=== PATIENT | male | born 1975 | race Caucasian/White ===

== ENCOUNTER 2018-11-14 22:03 | Emergency (ER) | payer OTHER ==
[2018-11-14 23:05] LABS: Appearance,Urine Clear (Clear); Bilirubin,Urine Negative (Negative); Blood,Urine Negative (Negative); Color,Urine Light Yellow; Glucose,Urine (UA) Negative (Negative); Ketones,Urine Negative (Negative); Leukocyte Esterase,Urine Negative (Negative); Nitrite,Urine Negative (Negative); PH, Urine 7.5 (5.0-8.0); Protein,Urine Negative (Negative); Specific Gravity,Urine 1.012 (1.001-1.035); Urobilinogen,Urine <2.0 mg/dL (<2.0)
[2018-11-14 23:06] LABS: Basophils # (A) 0.1 k/uL (0-0.2); Basophils % (A) 1 %; Eosinophils # (A) 0.4 k/uL (0-0.7); Eosinophils % (A) 4 %; HCT 40.5 % (39.0-53.0); HGB 13.5 gm/dL (13.0-17.5); Lymphocytes # (A) 3.2 k/uL (1.0-4.8); Lymphocytes % (A) 29 %; MCH 32.8 pg (25.0-35.0); MCHC 33.3 g/dL (31.0-37.0); MCV 98.6 fL (80.0-100.0); Mean Platelet Volume 7.6; Monocytes # (A) 0.7 k/uL (0-1.0); Monocytes % (A) 6 %; Neutrophils # (A) 6.5 k/uL (1.3-7.7); Neutrophils % (A) 59 %; Platelet Count 281 k/uL (150-450); RBC 4.11 m/uL (4.30-5.90); RDW 12.1 % (11.5-15.5); WBC 10.9 k/uL (3.8-10.6)
[2018-11-14 23:14] LABS: ALT 32 U/L (21-72); AST 33 U/L (17-59); Albumin 3.8 g/dL (3.5-5.0); Alkaline Phosphatase 65 U/L (38-126); Amylase 73 U/L (30-110); Anion Gap 7 mmol/L; Blood Urea Nitrogen 14 mg/dL (9-20); Calcium 9.1 mg/dL (8.4-10.2); Carbon Dioxide 29 mmol/L (22-30); Chloride 104 mmol/L (98-107); Glucose 100 mg/dL (74-99); Lipase 132 U/L (23-300); Potassium 4.2 mmol/L (3.5-5.1); Sodium 140 mmol/L (137-145); Total Bilirubin 0.2 mg/dL (0.2-1.3); Total Protein 6.9 g/dL (6.3-8.2)
--- NOTE | 2018-11-14 23:21 | XR ---
EXAMINATION TYPE: XR KUB DATE OF EXAM: 11/14/2018 COMPARISON: NONE HISTORY: Flank pain TECHNIQUE: 2 views FINDINGS: 2 views upright were obtained and show no sign of intestinal obstruction or pneumoperitoneu m. Fecal pattern is normal. There is no evidence of a mass. There are no pathologic calcifications ov er the kidneys. Lung bases are clear. IMPRESSION: Nonacute abdomen.
[2018-11-14 23:27] VITALS: RESP 18
[2018-11-14] MEDS ORDERED: KETOROLAC 30 MG/ML 1 ML VIAL IVP STA (23:41)
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
--- NOTE | 2018-11-15 | XR ---
EXAMINATION TYPE: XR chest 2V DATE OF EXAM: 11/14/2018 COMPARISON: NONE HISTORY: Right-sided pain TECHNIQUE: Frontal and lateral views of the chest are obtained. FINDINGS: Heart and mediastinum are normal. There is mild pleural thickening at the lung apices. The re is no pleural effusion. Costophrenic angles are clear. Bony thorax is intact. IMPRESSION: No active cardiopulmonary disease. Normal heart.
[2018-11-15 01:07] VITALS: BP 121/76; PULSE 66; TEMP 98
--- NOTE | 2018-11-15 01:25 | CT ---
EXAMINATION TYPE: CT chest angio for PE DATE OF EXAM: 11/15/2018 COMPARISON: None HISTORY: Pain, R/O PE rib pain CT DLP: 429.3 mGycm Automated exposure control for dose reduction was used. CONTRAST: CT Chest for pulmonary embolism performed with with IV Contrast, patient injected with 65 mL of Isovu e 370. FINDINGS: There are 3-D post processed images. There is patchy pulmonary emphysema in both upper lobes. There i s reticular nodular infiltrate in both upper lobes with pleural thickening. The mid and lower lung light are clear. There is subsegmental atelectasis at the posterior lung base s. There is no pleural effusion. Heart size is normal. There is no pericardial effusion. There is nor mal contrast opacification of the pulmonary arteries. There are no filling defects. There is no mediastinal adenopathy. Thoracic aorta appears normal without evidence of aneurysm or dis section. There are no hilar masses. The bony thorax is intact. IMPRESSION: Subsegmental atelectasis at the lung bases. Pleural and pulmonary scarring and emphysema in both uppe r lobes. no evidence of pulmonary embolism.
== END 2018-11-15 02:02 | disposition home or self-care (01) ==
LOC: EC 22:03
DX: R07.89 Other chest pain (principal); R05 Cough; F17.200 Nicotine dependence, unspecified, uncomplicated; Z79.899 Other long term (current) drug therapy
CPT/HCPCS: 99284 ×2; 96374 ×2; 36415; 85379; 80053; 82150; 83690; 85025; 81003; 71046; 74018; 71275; J1885; Q9967

== ENCOUNTER 2018-11-23 10:29 | Emergency (ER) | payer OTHER ==
[2018-11-23] MEDS ORDERED: IPRATROPIUM-ALBUTEROL 3 ML NEB INHALATION STA (11:44)
[2018-11-23] MEDS ORDERED: SODIUM CHLORIDE 0.9% 1,000 ML IV STA (11:44)
[2018-11-23] MEDS ORDERED: KETOROLAC 30 MG/ML 1 ML VIAL IVP STA (11:53)
[2018-11-23] MEDS ORDERED: LORazepam 2 MG/ML INJ IV STA (11:53)
[2018-11-23] MEDS ORDERED: MORPHINE SULFATE 4 MG/ML SYRINGE IVP STA (11:53)
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
[2018-11-23 12:10] LABS: Basophils # (A) 0.1 k/uL (0-0.2); Basophils % (A) 1 %; Eosinophils # (A) 0.3 k/uL (0-0.7); Eosinophils % (A) 4 %; HCT 41.3 % (39.0-53.0); Lymphocytes % (A) 22 %; MCH 33.9 pg (25.0-35.0); MCHC 33.9 g/dL (31.0-37.0); MCV 100.1 fL (80.0-100.0); Mean Platelet Volume 7.8; Monocytes # (A) 0.6 k/uL (0-1.0); Monocytes % (A) 7 %; Neutrophils # (A) 5.8 k/uL (1.3-7.7); Neutrophils % (A) 65 %; Platelet Count 220 k/uL (150-450); RBC 4.12 m/uL (4.30-5.90); RDW 12.4 % (11.5-15.5); WBC 8.9 k/uL (3.8-10.6)
[2018-11-23 12:15] LABS: Creatine Kinase 62 U/L (55-170)
[2018-11-23 12:18] LABS: ALT 33 U/L (21-72); AST 31 U/L (17-59); Acetaminophen <10.0 ug/mL; Albumin 3.9 g/dL (3.5-5.0); Alcohol <10 mg/dL; Alkaline Phosphatase 73 U/L (38-126); Anion Gap 7 mmol/L; Blood Urea Nitrogen 16 mg/dL (9-20); Calcium 9.2 mg/dL (8.4-10.2); Carbon Dioxide 29 mmol/L (22-30); Chloride 103 mmol/L (98-107); Glucose 103 mg/dL (74-99); Magnesium 1.9 mg/dL (1.6-2.3); Potassium 4.5 mmol/L (3.5-5.1); Salicylate <1.0 mg/dL; Sodium 139 mmol/L (137-145); Total Bilirubin 0.2 mg/dL (0.2-1.3)
[2018-11-23 12:20] LABS: D-Dimer 0.37 mg/L FEU (<0.60); INR 0.9 (<1.2); Partial Thromboplastin Time 24.7 sec (22.0-30.0); Prothrombin Time 9.7 sec (9.0-12.0)
[2018-11-23 12:27] LABS: Creatine Kinase MB 0.5 ng/mL (0.0-2.4); Troponin I <0.012 ng/mL (0.000-0.034)
--- NOTE | 2018-11-23 13:39 | US ---
EXAMINATION TYPE: US gallbladder DATE OF EXAM: 11/23/2018 COMPARISON: NONE CLINICAL HISTORY: Pain. Pt states rt side ABD pain EXAM MEASUREMENTS: Liver Length: 17.4 cm Gallbladder Wall: 0.3 cm CBD: 0.4 cm Right Kidney: 10.9 x 4.5 x 5.4 cm Pt very gassy, unable to tolerate probe pressure Pancreas: Obscured by bowel gas Liver: Difficult to visualize due to overlying bowel gas/ visualized portions appeared wnl Gallbladder: wnl Evidence for sonographic Banks's sign: Yes CBD: wnl Right Kidney: wnl IMPRESSION: No significant abnormality
[2018-11-23 14:28] LABS: Phosphorus 3.4 mg/dL (2.5-4.5)
[2018-11-23 14:42] LABS: VBG PH 7.3 (7.31-7.41)
[2018-11-23 15:34] LABS: Appearance,Urine Clear (Clear); Bilirubin,Urine Negative (Negative); Blood,Urine Negative (Negative); Color,Urine Light Yellow; Glucose,Urine (UA) Negative (Negative); Ketones,Urine Negative (Negative); Leukocyte Esterase,Urine Negative (Negative); Nitrite,Urine Negative (Negative); Protein,Urine Negative (Negative); Specific Gravity,Urine 1.004 (1.001-1.035); Urobilinogen,Urine <2.0 mg/dL (<2.0)
[2018-11-23 15:50] LABS: Cocaine Screen,Urine Not Detected (NotDetected); Opiate Screen,Urine Detected (NotDetected); Phencyclidine Screen,Urine Not Detected (NotDetected); Urn Cannabinoid Scrn Not Detected (NotDetected)
[2018-11-23 15:51] LABS: Amphetamine Screen,Urine Detected (NotDetected); Barbiturate Screen,Urine Not Detected (NotDetected); Benzodiazepines Screen,Urine Not Detected (NotDetected); Methadone Screen, Urine Not Detected (NotDetected); Oxycodone Screen, Urine Not Detected (NotDetected); Tricyclic Antidepressant,Urine Not Detected (NotDetected)
--- NOTE | 2018-11-23 15:56 | CT ---
EXAMINATION TYPE: CT angio chest DATE OF EXAM: 11/23/2018 3:14 PM COMPARISON: 11/15/2018 HISTORY: Right upper quadrant pain and shortness of breath. CT DLP: 379.6 mGycm Automated exposure control for dose reduction was used. CONTRAST: CTA scan of the thorax is performed with IV Contrast, patient injected with mL of Isovue 370, pulmona ry embolism protocol. There are 3-D post processed images.. FINDINGS: There is pulmonary emphysema. There is coarse interstitial density at the lung bases consistent with fibrosis and subsegmental atelectasis. There is no pleural effusion. Heart size is normal. There is n o pericardial effusion. There is normal contrast opacification of the pulmonary arteries. I see no fi lling defect. There are no hilar masses. There is no mediastinal adenopathy. Thoracic aorta is intact without evidence of aneurysm or dissection. The bony thorax is intact. IMPRESSION: NO EVIDENCE OF PULMONARY EMBOLISM. MILD PULMONARY EMPHYSEMA AND PULMONARY FIBROTIC CHANGES. NO SIGNIF ICANT CHANGE.
--- NOTE | 2018-11-23 15:59 | CT ---
EXAMINATION TYPE: CT abdomen pelvis w con DATE OF EXAM: 11/23/2018 COMPARISON: None HISTORY: Right upper quadrant pain and shortness of breath. CT DLP: 1218.2 mGycm Automated exposure control for dose reduction was used. TECHNIQUE: Helical acquisition of images was performed from the lung bases through the pelvis. CONTRAST: Performed without Oral Contrast and with IV Contrast, patient injected with 100 mL of Isovue 370. FINDINGS: There is some mild infiltrate and atelectasis at the posterior lung bases. Liver appears normal. Gall bladder appears normal. Bile ducts are not dilated. Spleen and pancreas appear normal. There is no ad renal mass. There is normal contrast opacification of the kidneys. There is no hydronephrosis. There is no retrop eritoneal adenopathy. Bladder distends smoothly. There is no inguinal hernia. There are a few sigmoid diverticula. There is no evidence of diverticulitis. Appendix appears normal. There is no evidence o f a bowel obstruction. There is no free air. I see no bony destructive process. Lumbar disc spaces ar e fairly normal. There is no mesenteric edema or adenopathy. Bony pelvis is intact. IMPRESSION: MINIMAL SIGMOID DIVERTICULOSIS. OTHERWISE NEGATIVE EXAM.
[2018-11-23 17:11] VITALS: BP 116/83; PULSE 71; RESP 18; TEMP 98.6
== END 2018-11-23 17:10 | disposition home or self-care (01) ==
LOC: EC 10:29
DX: R07.89 Other chest pain (principal); R06.02 Shortness of breath; R10.9 Unspecified abdominal pain; R07.1 Chest pain on breathing; F17.200 Nicotine dependence, unspecified, uncomplicated; Z79.899 Other long term (current) drug therapy
CPT/HCPCS: 36415; 94640; 93005; 85379; 83880; 80053; 82550; 82553; 82803; 83605; 83690; 83735; 84100; 84484; 85025; 85610; 85730; 81003; 80306; 83520 ×2; 76705; 71275; 74177; 99285; 96374; 96375 ×2; 96361 ×3; G0480; J2060; J2270; J1885; Q9967; 80320